=== PATIENT | male | born 1935 | race Caucasian/White ===

== ENCOUNTER → 2016-10-30 | Outpatient (CLI) | payer MEDICARE ==
[2016-10-30 14:48] LABS: ALT 27 U/L (21-72); AST 17 U/L (17-59); Alkaline Phosphatase 52 U/L (38-126); Amylase 119 U/L (30-110); Anion Gap 13 mmol/L; Basophils # (A) 0.1 k/uL (0-0.2); Basophils % (A) 1 %; Blood Urea Nitrogen 21 mg/dL (9-20); CHCM 32.6; Calcium 9.8 mg/dL (8.4-10.2); Carbon Dioxide 20 mmol/L (22-30); Chloride 109 mmol/L (98-107); Eosinophils # (A) 0.2 k/uL (0-0.7); Eosinophils % (A) 3 %; Glucose 158 mg/dL (74-99); HCT 33.4 % (39.0-53.0); HDW 2.88; HGB 11.2 gm/dL (13.0-17.5); Luc # (Auto) 0.19; Luc % (Auto) 3; Lymphocytes # (A) 1.5 k/uL (1.0-4.8); Lymphocytes % (A) 22 %; MCH 30.9 pg (25.0-35.0); MCHC 33.5 g/dL (31.0-37.0); MCV 92.3 fL (80.0-100.0); Mean Platelet Volume 6.6; Monocytes # (A) 0.4 k/uL (0-1.0); Monocytes % (A) 5 %; Neutrophils # (A) 4.5 k/uL (1.3-7.7); Neutrophils % (A) 67 %; Non-African American GFR(MDRD) >60 (>60 ml/min/1.73 sqM); Potassium 5.1 mmol/L (3.5-5.1); RBC 3.61 m/uL (4.30-5.90); RDW 13.1 % (11.5-15.5); Sodium 142 mmol/L (137-145); Total Bilirubin 0.6 mg/dL (0.2-1.3); Total Protein 7.2 g/dL (6.3-8.2); WBC 6.8 k/uL (3.8-10.6); WBC (Perox) 7.11
[2016-11-01 14:39] LABS: Mis test requested (Blood) CK ISOENZYMES
== END | disposition home or self-care (01) ==
LOC: LABWHC1 13:53
PROVIDERS: ATTEND Family Medicine
DX: E86.0 Dehydration (principal)
CPT/HCPCS: 36415; 80053; 82150; 82552; 83605; 83690; 85025

== ENCOUNTER → 2016-11-12 | Outpatient (CLI) | payer MEDICARE ==
--- NOTE | 2016-11-12 09:27 | US ---
EXAMINATION TYPE: US abdomen complete DATE OF EXAM: 11/12/2016 COMPARISON: NONE CLINICAL HISTORY: E86.0 Dehydration. Prior AAA resection with stent graft 20 years ago, gallbladder r emoved with stone retrieved from bile duct post GB removal; CABG 2008; attention to liver and pancrea s; diabetes (patient's stated patient is having difficulty regulating diabetes with 3 medication s EXAM MEASUREMENTS: Liver Length: 13.2 cm Gallbladder Wall: surgically removed CBD: 0.9 cm Spleen: 11.4 cm Right Kidney: 11.3 x 6.3 x 5.2 cm Left Kidney: 10.9 x 6.9 x 5.9 cm Pancreas: limitedly seen as is obscured by bowel gas Liver: hyperechoic; hyperechoic and thickened bile duct wall noted on images 40 through 48 Gallbladder: surgically absent Evidence for sonographic Guzman's sign: No CBD: wnl post cholecystectomy with thickened and hyperechoic garnica Spleen: wnl Right Kidney: very small upper pole cyst = 0.4 x 0.5 x 0.4cm Left Kidney: No hydronephrosis or masses seen Upper IVC: wnl Abd Aorta: stent graft is noted within mid aorta IMPRESSION: 1. Fatty liver versus diffuse hepatocellular disease. 2. Thickened common bile duct wall is nonspecific. Cholecystectomy changes.
== END | disposition home or self-care (01) ==
LOC: RADUSWWP 06:53
PROVIDERS: ATTEND Family Medicine
DX: E86.0 Dehydration (principal); Z90.49 Acquired absence of other specified parts of digestive tract
CPT/HCPCS: 76700

== ENCOUNTER 2018-05-14 17:46 | Emergency (ER) | payer MEDICARE ==
--- NOTE | 2018-05-14 19:06 | ED ---
Fall HPI - General Chief Complaint: Fall Stated Complaint: Fall Time Seen by Provider: 05/14/18 17:51 Source: patient, EMS Mode of arrival: EMS - History of Present Illness Initial Comments: This is an 80-year-old male the ER for evaluation. Patient is today for evaluation status post fall. Patient fell on the ice earlier today catching himself with his right arm, complaining of severe right upper extremity pain. Denies loss of consciousness denies neck pain he did hit his face when he did land with no significant known injury or bleeding. Patient is not on blood thinners currently MD Complaint: fall -: minutes(s) Fall From: standing When Fall Occurred: 1 hour [facility] Fall Witnessed: yes, by family Place Fall Occurred: home Loss of Consciousness: none Prolonged Down Time?: no Symptoms Prior to Fall: none Location - Extremities: Right: Shoulder, Arm Severity: moderate Severity scale (1-10): 2 Quality: aching Context: tripped/slipped (On ice) Associated Symptoms: denies - Related Data Home Medications Medication Instructions Recorded Confirmed Aspirin EC [Ecotrin Low Dose] 162 mg PO DAILY 05/14/18 05/14/18 Atorvastatin [Lipitor] 20 mg PO DAILY 05/14/18 05/14/18 Bromocriptine Mesylate 2.5 mg PO DAILY 05/14/18 05/14/18 Cinnamon Bark [Cinnamon] 500 mg PO DAILY 05/14/18 05/14/18 Glucosam/Nimesh-Msm1/C/Rian/Bosw 1 tab PO DAILY 05/14/18 05/14/18 [Glucosamine-Chondroitin Tablet] Insulin Glargine,Hum.rec.anlog 10 unit SQ QAM 05/14/18 05/14/18 [Lantus Solostar] Losartan Potassium [Cozaar] 100 mg PO DAILY 05/14/18 05/14/18 Metoprolol Tartrate [Lopressor] 25 mg PO BID 05/14/18 05/14/18 Multivitamins, Thera [Multivitamin 1 tab PO DAILY 05/14/18 05/14/18 (formulary)] [place]-3 Fatty Acids/Fish Oil [Fish 1 cap PO DAILY 05/14/18 05/14/18 Oil 1,000 mg Softgel] metFORMIN HCL 1,000 mg PO BID 05/14/18 05/14/18 Allergies Allergy/AdvReac Type Severity Reaction Status Date / Time No Known Allergies Allergy Verified 05/14/18 18:40 Review of Systems ROS Statement: Those systems with pertinent positive or pertinent negative responses have been documented in the HPI. ROS Other: All systems not noted in ROS Statement are negative. Past Medical History Past Medical History: Diabetes Mellitus, Hyperlipidemia, Hypertension Additional Past Medical History / Comment(s): AAA (repaired) History of Any Multi-Drug Resistant Organisms: None Reported Past Surgical History: Cholecystectomy, Coronary Bypass/CABG, Hernia Repair Additional Past Surgical History / Comment(s): AAA repair Past Psychological History: No Psychological Hx Reported Smoking Status: Former smoker Past Alcohol Use History: Occasional Past Drug Use History: None Reported General Exam - General Exam Comments Initial Comments: Severe right humerus pain Limitations: altered mental status General appearance: alert, in no apparent distress Head exam: Present: atraumatic, normocephalic, normal inspection Eye exam: Present: normal appearance, PERRL, EOMI. Absent: scleral icterus, conjunctival injection, periorbital swelling ENT exam: Present: normal exam, mucous membranes moist Neck exam: Present: normal inspection. Absent: tenderness, meningismus, lymphadenopathy Respiratory exam: Present: normal lung sounds bilaterally. Absent: respiratory distress, wheezes, rales, rhonchi, stridor Cardiovascular Exam: Present: regular rate, normal rhythm, normal heart sounds. Absent: systolic murmur, diastolic murmur, rubs, gallop, clicks GI/Abdominal exam: Present: soft, normal bowel sounds. Absent: distended, tenderness, guarding, rebound, rigid Extremities exam: Present: normal inspection, full ROM, normal capillary refill. Absent: tenderness, pedal edema, joint swelling, calf tenderness Back exam: Present: normal inspection Neurological exam: Present: alert, oriented X3, CN II-XII intact Psychiatric exam: Present: normal affect, normal mood Skin exam: Present: warm, dry, intact, normal color. Absent: rash Course Vital Signs 05/14/18 05/14/18 17:49 21:37 Temperature 97.1 F L 98 F Pulse Rate 72 68 Respiratory 18 16 Rate Blood Pressure 179/75 153/64 O2 Sat by Pulse 99 97 Oximetry Medical Decision Making - Medical Decision Making 82 male the ER for evaluation. Patient has status post fall positive right humeral fracture. Patient is able to ambulate, will Be discharged home - Radiology Data Radiology results: report reviewed (CT brain C-spine negative for acute disease , x-rays do show positive right humerus fracture), image reviewed Disposition Clinical Impression: Fall, Right humeral fracture Disposition: HOME SELF-CARE Condition: Good Instructions: Proximal Humerus Fracture (ED) Is patient prescribed a controlled substance at d/c from ED?: No Referrals: Shamar Vang MD [STAFF PHYSICIAN] - 1-2 days
--- NOTE | 2018-05-14 19:13 | CT ---
EXAMINATION TYPE: CT brain mine floyd DATE OF EXAM: 05/14/2018 COMPARISON: None HISTORY: Fall injury Headache. Neck pain. CT DLP: 1297.2 mGycm Automated exposure control for dose reduction was used. TECHNIQUE: CT scan of the head and cervical spine are performed without contrast. FINDINGS: There is cerebral cortical atrophy. There is no mass effect nor midline shift. There is n o sign of intracranial hemorrhage. Calvarium is intact. There is mucosal thickening in the posterior left maxillary sinus. Cervical vertebra have fairly normal spacing and alignment. There is hypertrophic anterior spur forma tion. Posterior elements are intact. Facet joints appear intact. The skull base is intact. IMPRESSION: Mild spondylotic changes in the cervical spine. No fracture. Cerebral atrophy. No acute intracranial abnormality. Left-sided maxillary sinusitis.
--- NOTE | 2018-05-14 20:57 | XR ---
EXAMINATION TYPE: XR elbow limited RT DATE OF EXAM: 05/14/2018 COMPARISON: NONE HISTORY: Fall. Pain. TECHNIQUE: 2 views FINDINGS: Elbow joint is intact. I see no elbow fracture. There is oblique fracture midshaft of the h umerus. IMPRESSION: Humerus shaft fracture. No elbow fracture seen.
--- NOTE | 2018-05-14 20:58 | XR ---
EXAMINATION TYPE: XR pelvis AP view DATE OF EXAM: 05/14/2018 COMPARISON: NONE HISTORY: Fall. Arm pain TECHNIQUE: Single view FINDINGS: Pelvic ring is intact. Proximal femurs and hip joints are intact. There is no sign of hip d ysplasia. Sacroiliac joints are intact. IMPRESSION: No fracture seen.
--- NOTE | 2018-05-14 20:59 | XR ---
EXAMINATION TYPE: XR shoulder complete BILAT DATE OF EXAM: 05/14/2018 COMPARISON: NONE HISTORY: Arm pain TECHNIQUE: 4 views FINDINGS: There is comminuted fracture of the mid and proximal shaft of the right humerus. The left s houlder appears intact. The right shoulder joint is intact. IMPRESSION: Acute comminuted fracture of the proximal shaft right humerus. There is displacement up t o 1 cm. Negative left shoulder exam.
--- NOTE | 2018-05-14 21:05 | XR ---
EXAMINATION TYPE: XR chest 1V DATE OF EXAM: 05/14/2018 COMPARISON: June 05, 2009 HISTORY: Fall. Arm pain TECHNIQUE: Single frontal view of the chest is obtained. FINDINGS: There is no heart failure nor confluent pneumonic infiltrate. Costophrenic angles are rowena r. There are sternal wires. Bony thorax is intact. I see no pneumothorax. IMPRESSION: No active cardiopulmonary disease. Normal heart. No change.
[2018-05-14] MEDS ORDERED: ACET/COD 300 MG/30 MG STARTER PACK 6 TAB BTL PO STA (21:29)
[2018-05-14] MEDS ORDERED: MORPHINE SULFATE 4 MG/ML SYRINGE IM STA (21:29)
[2018-05-14] MEDS ORDERED: Acetaminophen-Codeine 300-30mg TAB PO STA (21:29)
[2018-05-14 21:38] VITALS: BP 153/64; PULSE 68; RESP 16; TEMP 98
--- NOTE | 2018-05-15 07:26 | CDI ---
Documentation Clarification OP Dear Dr. Reid Mcclellan Please do addendum to ED report for missing HPI and Physical examination. Thank you, Lisset Carrion Rn Rehabilitation If you have any questions, please contact Aircraft Dispatcher at [phone] [facility]
== END 2018-05-14 21:47 | disposition home or self-care (01) ==
LOC: EC 17:46
DX: S42.301A Unspecified fracture of shaft of humerus, right arm, initial encounter for closed fracture (principal); E11.9 Type 2 diabetes mellitus without complications; E78.5 Hyperlipidemia, unspecified; I10 Essential (primary) hypertension; Z79.82 Long term (current) use of aspirin; Z79.4 Long term (current) use of insulin; Z79.899 Other long term (current) drug therapy; Z95.1 Presence of aortocoronary bypass graft; Z87.891 Personal history of nicotine dependence; Z53.8 Procedure and treatment not carried out for other reasons; W00.0XXA Fall on same level due to ice and snow, initial encounter; Y92.008 Other place in unspecified non-institutional (private) residence as the place of occurrence of the external cause
CPT/HCPCS: 70450; 71045; 72125; 72170; 99284